=== PATIENT | male | born 1965 | race Two or more races ===

== ENCOUNTER 2017-08-30 09:19 | Day surgery (SDC) | payer OTHER ==
[2017-08-30] MEDS ORDERED: ceFAZolin 2 GM/SWFI 2 GM/20 ML SYR IVP ONE (09:25)
[2017-08-30] MEDS ORDERED: BACITRACIN IRRIGATION/NS 50,000 UNITS/1,000 ML BTL IRR ONE (09:25)
[2017-08-30] MEDS ORDERED: DIAZEPAM 5 MG TAB PO ONE (09:25)
[2017-08-30] MEDS ORDERED: diphenhydrAMINE 25 MG CAP PO ONE (09:25)
[2017-08-30] MEDS ORDERED: NS 1,000 ML IV ONE (09:25)
--- NOTE | 2017-08-30 09:42 | CPEKG ---
Heart Rate: 82 RR Interval: 732 P-R Interval: 169 QRSD Interval: 132 QT Interval: 396 QTC Interval: 463 P [place]: 0 QRS [place]: 133 T Wave [place]: -45 EKG Severity - ABNORMAL ECG - EKG Impression: ATRIAL-SENSED VENTRICULAR-PACED RHYTHM Electronically Signed By: Dario Mccray 30-Aug-2017 18:04:46
[2017-08-30 09:56] LABS: % IMMATURE GRANULYOCYTES 0.4 % (0.0-1.1); ABSOLUTE IMMATURE GRANULOCYTES 0.02 10^3/uL (0.00-0.10); ADD DIFF? NO; ADD MORPH? NO; ADD SCAN? NO; ATYPICAL LYMPHOCYTE FLAG 10 (0-99); FRAGMENT RBC FLAG 0 (0-99); HEMATOCRIT 47.1 % (40.0-51.0); HEMOGLOBIN 15.8 g/dL (13.7-17.5); LEFT SHIFT FLG 0 (0-99); LIPEMIA HEMOLYSIS FLAG 80 (0-99); MEAN CELL HEMOGLOBIN 27.1 pg (27.9-34.1); MEAN CELL HEMOGLOBIN CONCENTR. 33.5 g/dL (32.4-36.7); MEAN CELL VOLUME 80.8 fL (81.5-99.8); MEAN PLATELET VOLUME 11.3 fL (8.7-11.7); PLATELET CLUMPS FLAG 0 (0-99); PLATELET COUNT 174 10^3/uL (150-400); RED BLOOD CELL COUNT 5.83 10^6/uL (4.40-6.38); RED CELL DISTRIBUTION WIDTH 17.2 % (11.5-15.2)
[2017-08-30 10:05] LABS: INR 0.97 (0.83-1.16); PROTIME(PATIENT) 12.8 SEC (12.0-15.0)
[2017-08-30 10:13] LABS: ANION GAP 12 mEq/L (8-16); CALCIUM 8.9 mg/dL (8.5-10.4); CARBON DIOXIDE 24 mEq/l (22-31); CHLORIDE 105 mEq/L (97-110); CREATININE 0.9 mg/dL (0.7-1.3); GLOMERULAR FILTRATION RATE > 60; GLUCOSE 206 mg/dL (70-100); POTASSIUM 4.3 mEq/L (3.5-5.2); SODIUM 141 mEq/L (134-144)
--- NOTE | 2017-08-30 10:34 | PDPROPOC ---
Sedation Plan of Care Sedation Plan of Care: vital signs stable, mental status noted, patient educated of risks, benefits, alternatives, patient can tolerate sedation ASA Classification: ASA 2 Planned drugs: fentanyl, midazolam Mallampati Score: Class 1 Mallampati Reference Image: Patient passed 3-3-2 rule?: Yes
--- NOTE | 2017-08-30 10:35 | PDGENHP ---
History & Physical Chief Complaint: Bi-V ICD at [facility]. History of Present Illness: NIDCM, Bi-V ICD at [facility]. Pertinent Past, Social, Family History: Per outpatient OV. Relevant Physical Exam: RRR no MGR. Clear lungs Cardiorespiratory Assessment: Stable for ICD gen change.
[2017-08-30] MEDS ORDERED: LIDOCAINE 1% 300 MG/30 ML SDV ONE (10:42)
[2017-08-30] MEDS ORDERED: BUPIVACAINE 0.5% 30 ML SDV ONE (10:43)
[2017-08-30] MEDS ORDERED: MIDAZOLAM 2 MG/2 ML VIAL ONE ×2 (10:43→11:51)
[2017-08-30] MEDS ORDERED: LIDO/EPI 1% **for epidural** 30 ML SDV ONE (10:43)
[2017-08-30] MEDS ORDERED: fentaNYL 100 MCG/2 ML INJ ONE (10:43)
[2017-08-30] MEDS ORDERED: OXYCODONE/APAP 5/325 TAB PO PRN (12:59)
--- NOTE | 2017-08-30 18:14 | CPIP ---
[f rep st] INVASIVE CARDIAC PROCEDURE DATE OF PROCEDURE: 08/30/2017 INDICATIONS: The patient is a 52-year-old male with a history of diabetes and a nonischemic dilated cardiomyopathy. He has a previous dual-chamber ICD implanted in October 2011 with an upgrade to a bi ventricular ICD in February of 2012. His current device is at elective replacement indicators. PROCEDURE: Biventricular implantable cardioverter defibrillator generator change. TECHNIQUE: Following informed consent, and in the fasting state, the patient was brought to the [facility] catheterization laboratory. The left chest was prepped and draped in the usual sterile fashion. 2% lidocaine was infiltrated in the skin below the left clavicle. Using the #10 blade, a 4 cm incis ion was made overlying the previous scar. Using blunt and sharp dissection, the ICD pocket was opene d. The capsule was identified and opened sharply. The device was then explanted from the pocket and all leads disconnected. The pocket was then irrigated with antibiotic-containing solution. All ble eders were cauterized. The new device was brought to the field. All leads were identified by serial number and affixed to the header according to riding teacher guidelines. The new device and the redun dant portions of all leads were then placed in the pocket. The pocket was then closed in 3 layers in itially using 2 layers of interrupted suture with 2-0 and 3-0 Vicryl and finally 3-0 Stratafix for th e skin. Steri-Strips and a dry dressing were applied. DEVICE INFORMATION: The atrial and right ventricular leads were implanted October 25, 2011. The atr ial lead is a [employer] Tendril STX 2088 TC 52 cm lead, serial number [id number]. Right ventri cular lead [employer] Durata [id number] 58 cm lead, serial number [id number]. Coronary sinus lead wa s implanted February 16, 2012. This is a [employer] Myopore lead, model [id number] 54 cm lead, serial # [id number]. In the atrium, capture was 0.625 at 0.5 V with sensed P waves greater than 5 mV and lead imp edance of 430 ohms. In the right ventricle, capture was 1.25 V at 0.5 msec with a sensed R-wave 11.7 mV and a lead impedance of 360 ohms. In the coronary sinus, LV lead capture was 1.25 V at 0.5 msec. Programmed LV tip to RV coil. Lead impedance was 260 ohms. High-voltage lead impedance 48 ohms. COMPLICATIONS: None. DISPOSITION: The patient will be transferred to the [facility] and discharged home later today. /[id number]/MODL
== END 2017-08-30 14:40 | disposition home or self-care (01) ==
LOC: FCATH 09:19
PROVIDERS: ATTEND Internal Medicine Cardiovascular Disease
DX: T82.191A Other mechanical complication of cardiac pulse generator (battery), initial encounter (principal); I42.9 Cardiomyopathy, unspecified; I48.0 Paroxysmal atrial fibrillation; I10 Essential (primary) hypertension; E78.5 Hyperlipidemia, unspecified; E11.9 Type 2 diabetes mellitus without complications; Z79.01 Long term (current) use of anticoagulants
CPT/HCPCS: C1882; J0690; J2250; J3010